=== PATIENT | male | born 1980 | race Caucasian/White ===

== ENCOUNTER 2022-10-27 11:13 | Outpatient (CLI) | payer OTHER ==
[2022-10-27 12:19] LABS: PROLACTIN 5.3 ng/mL
[2022-10-28 07:10] LABS: ESTRADIOL 23.5 pg/mL (7.6-42.6)
== END 2022-10-27 11:14 | disposition home or self-care (01) ==
LOC: LAB 11:13
PROVIDERS: ATTEND Urology
DX: E29.1 Testicular hypofunction (principal)
CPT/HCPCS: 36415; 82670; 83002; 84146; 84402; 84403

== ENCOUNTER 2023-02-15 12:01 | Outpatient (CLI) | payer OTHER ==
[2023-02-15 12:21] LABS: BASOPHILS # (AUTO) 0.1 10^3/uL (0.0-0.1); EOSINOPHILS # (AUTO) 0.3 10^3/uL (0.0-0.7); EOSINOPHILS % (AUTO) 4.4 %; HCT - HEMATOCRIT 44.4 % (42.0-52.0); LYMPHOCYTES # (AUTO) 2.2 10^3/uL (1.5-3.5); MEAN CORPUSCULAR HEMOGLOBIN 28.6 pg (27.0-31.0); MEAN CORPUSCULAR HGB CONC 33.8 g/dL (32.0-36.0); MEAN CORPUSCULAR VOLUME 84.6 fL (80.0-94.0); MEAN PLATELET VOLUME 9.6 fL (7.4-11.4); MONOCYTES # (AUTO) 0.4 10^3/uL (0.0-1.0); MONOCYTES % (AUTO) 5.5 %; NEUTROPHILS # (AUTO) 3.7 10^3/uL (1.5-6.6); NEUTROPHILS % (AUTO) 55.5 %; PLT - PLATELET COUNT 259 10^3/uL (130-450); RED BLOOD COUNT 5.25 10^6/uL (4.70-6.10); RED CELL DISTRIBUTION WIDTH 12.5 % (12.0-15.0); WHITE BLOOD COUNT 6.8 x10^3/uL (4.8-10.8)
[2023-02-15 12:42] LABS: CALCIUM 9.6 mg/dL (8.5-10.3)
[2023-02-16 22:07] LABS: FREE TESTOSTERONE(DIRECT) 16.9 pg/mL (6.8-21.5)
== END 2023-02-15 12:02 | disposition home or self-care (01) ==
LOC: LAB 12:01
PROVIDERS: ATTEND Urology
DX: E29.1 Testicular hypofunction (principal)
CPT/HCPCS: 36415; 80048; 84402; 84403; 85025

== ENCOUNTER 2023-06-16 11:51 | Outpatient (CLI) | payer OTHER ==
[2023-06-16 12:06] LABS: BASOPHILS % (AUTO) 0.5 %; EOSINOPHILS # (AUTO) 0.1 10^3/uL (0.0-0.7); EOSINOPHILS % (AUTO) 1.7 %; HCT - HEMATOCRIT 46.7 % (42.0-52.0); HGB - HEMOGLOBIN 15.1 g/dL (14.0-18.0); LYMPHOCYTES # (AUTO) 2.2 10^3/uL (1.5-3.5); LYMPHOCYTES % (AUTO) 26.7 %; MEAN CORPUSCULAR HEMOGLOBIN 28.3 pg (27.0-31.0); MEAN CORPUSCULAR HGB CONC 32.3 g/dL (32.0-36.0); MEAN CORPUSCULAR VOLUME 87.6 fL (80.0-94.0); MEAN PLATELET VOLUME 9.5 fL (7.4-11.4); MONOCYTES # (AUTO) 0.4 10^3/uL (0.0-1.0); MONOCYTES % (AUTO) 5.2 %; NEUTROPHILS # (AUTO) 5.3 10^3/uL (1.5-6.6); NEUTROPHILS % (AUTO) 65.5 %; PLT - PLATELET COUNT 266 10^3/uL (130-450); RED BLOOD COUNT 5.33 10^6/uL (4.70-6.10)
[2023-06-16 12:23] LABS: ALBUMIN/GLOBULIN RATIO 1.6 (1.0-2.2); BILIRUBIN,TOTAL 0.5 mg/dL (0.2-1.0); CALCIUM 10.3 mg/dL (8.5-10.3); CREATININE 1.1 mg/dL (0.6-1.3); POTASSIUM 4.3 mmol/L (3.5-4.5); TOTAL PROTEIN 8.1 g/dL (6.4-8.9)
== END 2023-06-16 11:52 | disposition home or self-care (01) ==
LOC: LAB 11:51
PROVIDERS: ATTEND Urology
DX: E29.1 Testicular hypofunction (principal)
CPT/HCPCS: 36415; 80053; 84403; 85025

== ENCOUNTER 2023-06-20 10:02 | Outpatient (CLI) | payer OTHER ==
[2023-06-20] MEDS ORDERED: GADOTERATE MEGLUMINE 10 MMOL/20 ML VIAL ONE (10:10)
--- NOTE | 2023-06-20 14:13 | MRI Report ---
PROCEDURE: MRI brain and sella with and without contrast. INDICATIONS: DISORDER OF PITUITARY TECHNIQUE: Multiplanar multisequential MR images of the brain were obtained before and after intrave nous contrast administration. Dedicated images through the sella were also obtained dynamically durin g contrast injection. COMPARISON: None. FINDINGS: Sella: Pituitary gland is appropriate in size and signal characteristics. The gland enhances uniforml y without nodular defect or mass lesion. Infundibulum is midline. Suprasellar cistern and cavernous s inuses unremarkable. Appropriate ICA flow voids and optic chiasm noted. CSF spaces: Basal cisterns are patent. No extra-axial fluid collections. Ventricles are normal in size and shape. Brain: No midline shift. No intracranial bleeds or masses. No abnormal intracranial enhancement. The brainstem appears normal. Diffusion-weighted images demonstrate no acute infarct. Normal intrav ascular flow voids are present. Skull and face: Calvarial marrow is normal in signal. Orbits appear normal. Sinuses: Sinuses and mastoids appear clear. IMPRESSION: Unremarkable MRI of the brain and pituitary gland with and without contrast Reviewed by: Neto Wong MD on 06/20/2023 1:11 PM OREN Approved by: Neto Wong MD on 06/20/2023 1:11 PM AKTITO Station ID: [id number]
[2023-06-20] MEDS: GADOTERATE MEGLUMINE 10 MMOL/20 ML VIAL IVP ONE (18:08)
== END 2023-06-20 10:03 | disposition home or self-care (01) ==
LOC: DI 10:02
PROVIDERS: ATTEND Internal Medicine
DX: E23.7 Disorder of pituitary gland, unspecified (principal)
CPT/HCPCS: 70553; A9575